=== PATIENT | female | born 1990 | race Caucasian/White ===

== ENCOUNTER 2019-04-12 12:20 | Outpatient (CLI) | payer OTHER | END 2019-04-12 15:00 | disposition home or self-care (01) | LOC: LAB SALUS 12:20 | DX: Z13.1 Encounter for screening for diabetes mellitus (principal); Z11.4 Encounter for screening for human immunodeficiency virus [HIV]; Z11.3 Encounter for screening for infections with a predominantly sexual mode of transmission ==

== ENCOUNTER 2019-05-01 11:31 | Outpatient (CLI) | payer OTHER | END 2019-05-01 11:49 | disposition home or self-care (01) | LOC: SONOGRAMA 11:31 | DX: N64.4 Mastodynia (principal); Z80.3 Family history of malignant neoplasm of breast; Z12.31 Encounter for screening mammogram for malignant neoplasm of breast; Z87.898 Personal history of other specified conditions ==

== ENCOUNTER 2021-05-22 12:30 | Outpatient (CLI) | payer OTHER | END 2021-05-22 13:55 | disposition home or self-care (01) | LOC: PRENATAL 12:30 | PROVIDERS: ATTEND Obstetrics & Gynecology Maternal & Fetal Medicine | DX: O35.0XX0 Maternal care for (suspected) central nervous system malformation in fetus, not applicable or unspecified (principal); O35.3XX0 Maternal care for (suspected) damage to fetus from viral disease in mother, not applicable or unspecified; Z3A.20 20 weeks gestation of pregnancy ==